=== PATIENT | female | born 1985 | race Caucasian/White ===

== ENCOUNTER 2016-07-05 15:41 | Emergency (ER) | payer SELFPAY | END 2016-07-05 18:25 | LOC: FER 15:41 | DX: S40.012A Contusion of left shoulder, initial encounter (principal); S20.212A Contusion of left front wall of thorax, initial encounter; S70.02XA Contusion of left hip, initial encounter; S80.02XA Contusion of left knee, initial encounter; F17.210 Nicotine dependence, cigarettes, uncomplicated; V49.40XA Driver injured in collision with unspecified motor vehicles in traffic accident, initial encounter; Y92.410 Unspecified street and highway as the place of occurrence of the external cause | CPT/HCPCS: 71101; 73030; 73502; 73564; 93005 ==

== ENCOUNTER 2020-11-26 22:20 | Emergency (ER) | payer OTHER ==
[2020-11-26] MEDS ORDERED: DICLOFENAC SODI75 MG PO (23:22)
== END 2020-11-26 23:58 | disposition home or self-care (01) ==
LOC: FER 22:20
DX: S50.02XA Contusion of left elbow, initial encounter (principal); I10 Essential (primary) hypertension; E78.5 Hyperlipidemia, unspecified; W22.8XXA Striking against or struck by other objects, initial encounter; Y92.009 Unspecified place in unspecified non-institutional (private) residence as the place of occurrence of the external cause
CPT/HCPCS: 73080